=== PATIENT | female | born 2000 | race Caucasian/White ===

== ENCOUNTER 2019-07-10 00:25 | Emergency (ER) | payer SELFPAY ==
[~2019-07-10] VITALS: Ht 177.8 cm; Wt 73.0 kg
[2019-07-10] MEDS ORDERED: ONDANSETRON HCL 4MG/2ML INJ IV STA (00:54)
[2019-07-10] MEDS ORDERED: SODIUM CHLORIDE 0.9% 1,000 ML IV ONE (00:54)
[2019-07-10 02:58] LABS: BASOPHILS % 0.3 % (0.0-2.0); EOSINOPHILS % 0.1 % (0.0-5.0); HEMATOCRIT. 32.8 % (36.0-48.0); HEMOGLOBIN. 11.1 g/dL (12.0-16.0); LYMPHOCYTES % 11.2 % (20.0-50.0); MEAN CORPUSCULAR HEMOGLOBIN 27.5 pg (28.0-32.0); MEAN CORPUSCULAR VOLUME 81.4 fL (81.0-99.0); MEAN PLATELET VOLUME 9.1 fl (7.4-10.4); MONOCYTES % 5.4 % (2.0-8.0); PLATELET 279 x1000/uL (130-400); RED BLOOD CELL COUNT 4.03 mill/uL (4.2-5.4); RED CELL DISTRIBUTION WIDTH 16.1 % (11.6-14.6)
[2019-07-10 03:01] LABS: CHLORIDE 108 mEq/L (98-107)
[2019-07-10 03:08] LABS: ETHANOL BLOOD 131 mg/dL
[2019-07-10 04:25] VITALS: BP 122/71
[2019-07-14 19:06] LABS: BARBITURATE SCREEN Negative ug/mL (Cutoff:0.1); BENZODIAZEPINE SCREEN Negative ng/mL (Cutoff:20); OPIATES SCREEN Negative ng/mL (Cutoff:5); PHENCYCLIDINE SCREEN Negative ng/mL (Cutoff:8)
== END 2019-07-10 04:37 | disposition home or self-care (01) ==
LOC: ER 00:25
DX: F10.129 Alcohol abuse with intoxication, unspecified (principal); Y90.6 Blood alcohol level of 120-199 mg/100 ml; Z91.81 History of falling
CPT/HCPCS: 36415; 80053; 80320; 85025; 96361; 96374; 99284; J2405; J7030; Z7610; G0480